=== PATIENT | female | born 1985 | race Caucasian/White ===

== ENCOUNTER 2016-10-24 23:46 | Emergency (ER) | payer OTHER ==
[~2016-10-24] VITALS: Ht 154.9 cm; Wt 86.2 kg
[2016-10-25 02:09] VITALS: BP 157/83
[2016-10-25] MEDS ORDERED: CETACAINE SPRAY 20GM (FLOOR STOCK) TOP ONE (05:45)
[2016-10-25] MEDS ORDERED: BUPIVACAINE HCL 0.5% 30 ML VIAL SC ONE (05:45)
[2016-10-25] MEDS ORDERED: LIDOCAINE W/EPINEPHRINE 1% 20ML VIAL SC ONE (05:45)
[2016-10-25] MEDS ORDERED: NORCO, ANEXSIA 5/325MG TABLET (HYDROcodone/ACETAMINOPHEN) PO ONE (06:15)
== END 2016-10-25 06:33 | disposition home or self-care (01) ==
LOC: M ED 10-25 00:55
DX: K08.89 Other specified disorders of teeth and supporting structures (principal); Z88.0 Allergy status to penicillin

== ENCOUNTER → 2017-04-29 | Outpatient (CLI) | payer OTHER, SELFPAY ==
--- NOTE | 2017-04-30 05:49 | REP ---
Clinical: Sprain . Technique: AP, lateral, bilateral oblique views left ankle . Findings: No acute fracture or dislocation. Skeletal structures and joint spaces are intact and normal. Ankle mortise appears stable. No subcutaneous emphysema or radiodense foreign body. Impression: Normal age-appropriate left ankle radiograph series. Acute fracture or dislocation. Signed by Srinivas Tinsley MD 04/30/2017 05:41 A
== END ==
LOC: M ADAMS 15:18
PROVIDERS: ATTEND Physician Assistant Medical
DX: S93.402A Sprain of unspecified ligament of left ankle, initial encounter (principal); W19.XXXA Unspecified fall, initial encounter; Y92.9 Unspecified place or not applicable; Y99.9 Unspecified external cause status

== ENCOUNTER 2018-07-09 21:20 | Emergency (ER) | payer MEDICAID, SELFPAY ==
[~2018-07-09] VITALS: Ht 154.9 cm; Wt 91.4 kg
[2018-07-09] MEDS ORDERED: birth control (21:26)
[2018-07-09 22:23] LABS: HEMATOCRIT 42.1 % (36.0-47.0); HEMOGLOBIN 14.4 g/dl (12.0-15.5); MEAN CORPUSCULAR HEMOGLOBIN 28.9 pg (27.0-33.0); MEAN CORPUSCULAR HGB CONC 34.2 g/dl (32.0-36.5); MEAN CORPUSCULAR VOLUME 84.4 fl (80.0-96.0); PLATELET COUNT, AUTOMATED 352 10^3/uL (150-450); RED BLOOD COUNT 4.99 10^6/uL (4.00-5.40)
[2018-07-09 22:47] LABS: BLOOD UREA NITROGEN 11 MG/DL (7-18); CALCIUM LEVEL 9.3 MG/DL (8.5-10.1); CARBON DIOXIDE LEVEL 27 MEQ/L (21-32); CHLORIDE LEVEL 108 MEQ/L (98-107); CREATININE FOR GFR 0.65 MG/DL (0.55-1.30); GLOMERULAR FILTRATION RATE > 60.0 (>60); GLUCOSE, FASTING 89 MG/DL (70-100); POTASSIUM SERUM 3.9 MEQ/L (3.5-5.1); SODIUM LEVEL 142 MEQ/L (136-145)
[2018-07-09] MEDS ORDERED: ISOVUE-370 76% 100ML VIAL (Q9967) As Ordered ONE (22:54)
[2018-07-09] MEDS ORDERED: CHLO1.4S2 PO (23:19)
--- NOTE | 2018-07-09 23:28 | REPVR ---
EXAM: CT Neck With Contrast EXAM DATE/TIME: 07/09/2018 9:51 PM CLINICAL HISTORY: 32 years old, female; Signs and symptoms; Abscess, tonsil; Patient HX: Left; Additional info: Tonsillar abscess left TECHNIQUE: Axial computed tomography images of the neck with intravenous contrast. All CT scans at this facility use at least one of these dose optimization techniques: automated exposure control; mA and/or kV adjustment per patient size (includes targeted exams where dose is matched to clinical indication); or iterative reconstruction. Coronal and sagittal reformatted images were created and reviewed. CONTRAST: 75 ml of iso administered intravenously. COMPARISON: No relevant prior studies available. FINDINGS: Sinuses: Clear paranasal sinuses. There is a small amount of secretions in the sphenoid sinus. Nasopharynx: Normal appearing nasopharynx. Oropharynx: There is enlargement of the left tonsil but no clearly defined abscess. Hypopharynx: Normal appearing hypopharynx. Larynx: Normal appearing focal cords. Submandibular/Parotid glands: Normal -appearing parotid glands. Normal appearing submandibular glands. Thyroid: Normal appearing thyroid. Lymph nodes: Very small submandibular lymph nodes. There is a 1.5 CM by 3 CM lymph node right carotid bifurcation. There is a 1.5 CM by 2 CM oval lymph node left posterior triangle region. Lung apices: Clear apical portions of the lung. Vasculature: No acute findings. Dental: There are severe dental caries in 2 of the mandibular teeth with loss of the crown. Mastoid air cells: Clear mastoid air cells. Bones/joints: No evidence of fracture. There is no evidence of destructive change of bone. Soft tissues: Normal. No significant soft tissue swelling. IMPRESSION: 1. Enlarged lymph node right carotid bifurcation and left posterior triangle region. 2. Enlargement of the left tonsil but no defined abscess. Electronically signed by: Arsenio Shell On 07/09/2018 23:28:10 PM
[2018-07-09] MEDS ORDERED: CLIN150C14 PO (23:44)
[2018-07-09] MEDS ORDERED: CLINDAMYCIN 150 MG CAP PO ONE (23:45)
[2018-07-09 23:52] VITALS: BP 122/69
== END 2018-07-09 23:59 | disposition home or self-care (01) ==
LOC: M ED 21:20
DX: J02.9 Acute pharyngitis, unspecified (principal); Z88.0 Allergy status to penicillin
CPT/HCPCS: 70491; 80048; 85027; 87880; 99284; Q9967

== ENCOUNTER 2018-11-12 15:44 | Emergency (ER) | payer MEDICAID, OTHER ==
[~2018-11-12] VITALS: Ht 154.9 cm; Wt 97.7 kg
[~2018-11-12 15:44] MED LIST: CHLO1.4S2 PO; CLIN150C14 PO; birth control
[2018-11-12] MEDS ORDERED: OTC PRENATAL (15:49)
[2018-11-12 16:31] LABS: BASO # 0.1 10^3/uL (0.0-0.2); BASO % 0.8 % (0.0-1.0); EOS # 0.5 10^3/uL (0.0-0.50); EOS % 5.4 % (0.0-3.0); HEMOGLOBIN 14.2 g/dl (12.0-15.5); LYMPH % 30.2 % (24.0-44.0); MEAN CORPUSCULAR HEMOGLOBIN 29.6 pg (27.0-33.0); MEAN CORPUSCULAR HGB CONC 34.6 g/dl (32.0-36.5); MEAN CORPUSCULAR VOLUME 85.6 fl (80.0-96.0); MONO # 0.7 10^3/uL (0.0-0.8); MONO % 6.8 % (0.0-5.0); NEUTROPHILS # 5.6 10^3/uL (1.8-7.7); NEUTROPHILS % 56.5 % (36.0-66.0); PLATELET COUNT, AUTOMATED 307 10^3/uL (150-450); RED BLOOD COUNT 4.79 10^6/uL (4.00-5.40); WHITE BLOOD COUNT 9.9 10^3/uL (4.0-10.0)
[2018-11-12 18:03] VITALS: BP 132/81
[2018-11-12] MEDS ORDERED: MACR100C43 PO (18:06)
--- NOTE | 2018-11-12 18:40 | REP ---
REASON: Vaginal bleeding. COMPARISON EXAMINATION: None. Transvesical and transvaginal imaging was obtained. Uterus measures 10.2 x 6.0 x 7.2 cm. The endometrial echo complex is thickened at 1.5 cm which is within normal limits for the patient's age group. There is no intrauterine or extrauterine identifiable . The right ovary measures 3.0 x 1.8 x 2.0 cm and is within normal limits. The left ovary measures 3.5 x 2.7 x 2.3 cm and is within normal limits. There is a decompressing ovarian cyst which measures 2 cm. IMPRESSION:No evidence of an intrauterine or extrauterine . Findings as described above. Electronically Signed by Erwin Guillory DO 11/12/2018 06:59 P
== END 2018-11-12 18:17 | disposition home or self-care (01) ==
LOC: M ED 15:44
DX: O20.0 Threatened abortion (principal); O23.41 Unspecified infection of urinary tract in pregnancy, first trimester; O34.81 Maternal care for other abnormalities of pelvic organs, first trimester; N83.202 Unspecified ovarian cyst, left side; Z88.0 Allergy status to penicillin; Z88.8 Allergy status to other drugs, medicaments and biological substances; Z3A.00 Weeks of gestation of pregnancy not specified

== ENCOUNTER → 2018-11-14 | Outpatient (CLI) | payer OTHER ==
[~2018-11-14] MED LIST changes: +MACR100C43 PO; +OTC PRENATAL
== END ==
LOC: M LAB 11:33
PROVIDERS: ATTEND Nurse Practitioner Family
DX: O20.0 Threatened abortion (principal); Z3A.00 Weeks of gestation of pregnancy not specified

== ENCOUNTER → 2018-11-17 | Outpatient (REF) | payer OTHER ==
[2018-11-17 18:33] LABS: PROGESTERONE 7.66 NG/ML
== END ==
LOC: M LAB REF 16:36
PROVIDERS: ATTEND Obstetrics & Gynecology
DX: O36.80X0 Pregnancy with inconclusive fetal viability, not applicable or unspecified (principal); Z3A.00 Weeks of gestation of pregnancy not specified

== ENCOUNTER 2018-11-19 11:06 | Emergency (ER) | payer OTHER ==
[~2018-11-19] VITALS: Ht 154.9 cm; Wt 100.5 kg
[2018-11-19 12:51] LABS: BASO # 0.1 10^3/uL (0.0-0.2); BASO % 0.8 % (0.0-1.0); EOS # 0.4 10^3/uL (0.0-0.50); EOS % 5.5 % (0.0-3.0); HEMATOCRIT 42.4 % (36.0-47.0); HEMOGLOBIN 14.5 g/dl (12.0-15.5); LYMPH # 2.2 10^3/uL (1.5-4.5); LYMPH % 29.5 % (24.0-44.0); MEAN CORPUSCULAR HEMOGLOBIN 30.3 pg (27.0-33.0); MEAN CORPUSCULAR HGB CONC 34.2 g/dl (32.0-36.5); MEAN CORPUSCULAR VOLUME 88.7 fl (80.0-96.0); MONO # 0.6 10^3/uL (0.0-0.8); MONO % 8.5 % (0.0-5.0); NEUTROPHILS # 4.1 10^3/uL (1.8-7.7); NEUTROPHILS % 55.2 % (36.0-66.0); PLATELET COUNT, AUTOMATED 286 10^3/uL (150-450); RED BLOOD COUNT 4.78 10^6/uL (4.00-5.40); WHITE BLOOD COUNT 7.4 10^3/uL (4.0-10.0)
--- NOTE | 2018-11-19 13:53 | REP ---
FIRST TRIMESTER OBSTETRIC SONOGRAPHY: HISTORY: Pelvic pain. FINDINGS: Transabdominal and endovaginal scanning are performed. Uterine dimensions are 10.3 x 5.7 x 6.6 cm. No intrauterine gestation is seen. There is no evidence of free cul-de-sac fluid. There are two small hypoechoic cyst in the left ovary measuring 2.1 and 1.2 cm in greatest diameter respectively. Left ovarian dimensions are 3.3 x 2.3 x 2.9 cm. Right ovary is normal measuring 2.9 x 1.7 x 2.0 cm. Resistive indices are 0.49 on the right and 0.57 on the left by Doppler. IMPRESSION: No intrauterine gestation seen. Nonspecific sonographic findings. Early IUP versus ectopic versus miscarriage. Consider followup. There is no evidence of free fluid. Two small cysts are seen in the left ovary. Electronically Signed by Emery Gurrola MD 11/19/2018 03:11 P
[2018-11-19] MEDS ORDERED: METHOTREXATE 50MG/2ML VIAL (J9260 PER 50MG) IM STA (14:42)
[2018-11-19 15:04] LABS: ALBUMIN 3.7 GM/DL (3.2-5.2); BILIRUBIN,DIRECT 0.2 MG/DL (0.0-0.2); BILIRUBIN,TOTAL 0.6 MG/DL (0.2-1.0); TOTAL PROTEIN 7.9 GM/DL (6.4-8.2)
[2018-11-19 16:32] VITALS: BP 114/55
== END 2018-11-19 16:48 | disposition home or self-care (01) ==
LOC: M ED 11:06
DX: O00.90 Unspecified ectopic pregnancy without intrauterine pregnancy (principal); Z88.0 Allergy status to penicillin; Z88.8 Allergy status to other drugs, medicaments and biological substances
CPT/HCPCS: 36415; 76801; 76817; 80076; 84702; 85025; 93976; 96372; 99283; J9260

== ENCOUNTER 2018-11-24 09:34 | Day surgery (SDC) | payer OTHER ==
[~2018-11-24] VITALS: Ht 154.9 cm; Wt 90.9 kg
[2018-11-24] MEDS ORDERED: NS 1,000 ML IV ONE (09:45)
[2018-11-24] MEDS ORDERED: MORPHINE 2 MG/ML 1ML SYRINGE (J2270) IV PRN (10:15)
[2018-11-24] MEDS ORDERED: ONDANSETRON 4MG/2ML VIAL (J2405) IV ONE (10:15)
[2018-11-24 10:20] LABS: BASO # 0.1 10^3/uL (0.0-0.2); BASO % 0.5 % (0.0-1.0); EOS # 0.4 10^3/uL (0.0-0.50); EOS % 3.3 % (0.0-3.0); HEMATOCRIT 38.1 % (36.0-47.0); HEMOGLOBIN 13.2 g/dl (12.0-15.5); LYMPH # 2.7 10^3/uL (1.5-4.5); MEAN CORPUSCULAR HEMOGLOBIN 30.2 pg (27.0-33.0); MEAN CORPUSCULAR HGB CONC 34.6 g/dl (32.0-36.5); MEAN CORPUSCULAR VOLUME 87.2 fl (80.0-96.0); MONO # 0.8 10^3/uL (0.0-0.8); MONO % 6.3 % (0.0-5.0); NEUTROPHILS # 8.8 10^3/uL (1.8-7.7); NEUTROPHILS % 68.4 % (36.0-66.0); PLATELET COUNT, AUTOMATED 294 10^3/uL (150-450); RED BLOOD COUNT 4.37 10^6/uL (4.00-5.40); WHITE BLOOD COUNT 12.8 10^3/uL (4.0-10.0)
--- NOTE | 2018-11-24 11:13 | REP ---
Emergency first trimester obstetric sonography: History: Known ectopic . Status post methotrexate. Question rupture. Findings: Transabdominal and transvaginal scanning are performed. Uterine dimensions are 10.7 x 6.4 x 6.9 cm. The endometrium measures 2.2 cm in thickness. Right ovary measures 2.8 x 1.8 x 2.0 cm. The right ovary has a normal appearance. The left ovary is difficult to differentiate from surrounding tissue. There is complex free fluid and mass effect in the left adnexa with overall dimensions 6.7 x 3.4 x 4.3 cm. This is most compatible with left ovary surrounded by thrombus and blood suggesting ruptured ectopic . There is only a small amount of free fluid in the cul-de-sac elsewhere. Electronically Signed by Emery Gurrola MD 11/24/2018 11:05 A
[2018-11-24] MEDS ORDERED: NS 1,000 ML IV SCH (12:15)
[2018-11-24] MEDS ORDERED: ROCURONIUM BROMIDE 50 MG/5 ML VIAL As Ordered ONE (12:26)
[2018-11-24] MEDS ORDERED: PROPOFOL 200 MG/20 ML VIAL As Ordered ONE (12:26)
[2018-11-24] MEDS ORDERED: SUCCINYLCHOLINE 100 MG/5 ML SYRINGE (J0330) As Ordered ONE (12:26)
[2018-11-24] MEDS ORDERED: LIDOCAINE 2% INJ 100 MG/5 ML SDV (FOR ANES.) As Ordered ONE (12:26)
[2018-11-24] MEDS ORDERED: MIDAZOLAM INJ 2 MG/2 ML VIAL (J2250) As Ordered ONE (12:27)
[2018-11-24] MEDS ORDERED: fentaNYL 100 MCG/2 ML INJECTION (J3010) As Ordered ONE (12:27)
[2018-11-24] MEDS ORDERED: BUPIVACAINE/EPIN 0.25% 30 ML VIAL As Ordered ONE (12:30)
[2018-11-24] MEDS ORDERED: METHYLENE BLUE 0.5% (5MG/ML) 10 ML AMP (PROVAYBLUE)(Q9968 PER 1MG) As Ordered ONE (12:31)
[2018-11-24] MEDS ORDERED: HYDROmorphone HCL 2 MG/ML 1ML VIAL (J1170) As Ordered ONE (13:25)
[2018-11-24] MEDS ORDERED: ACETAMINOPHEN 1000MG 100ML IV BTL (OFIRMEV) (J0131 PER 10MG) As Ordered ONE (13:25)
[2018-11-24] MEDS ORDERED: dexameTHASONE 4 MG/ML 1ML VIAL (J1100) As Ordered ONE (13:41)
[2018-11-24] MEDS ORDERED: ONDANSETRON 4MG/2ML VIAL (J2405) As Ordered ONE (13:41)
[2018-11-24] MEDS ORDERED: GLYCOPYRROLATE INJ 0.2 MG/ML 2 ML VIAL As Ordered ONE (13:45)
[2018-11-24] MEDS ORDERED: NEOSTIGMINE 10 MG/10 ML VIAL (J2710) As Ordered ONE (13:45)
[2018-11-24] MEDS ORDERED: SUGAMMADEX SODIUM 500 MG/5 ML VIAL (BRIDION) As Ordered ONE (14:05)
[2018-11-24] MEDS ORDERED: PERCOCET 5MG/325MG TAB As Ordered ONE (14:27)
[2018-11-24] MEDS ORDERED: ONDANSETRON 4MG/2ML VIAL (J2405) IV PRN (14:30)
[2018-11-24] MEDS ORDERED: PERCOCET 5MG/325MG TAB PO PRN (14:30)
[2018-11-24] MEDS ORDERED: MEPERIDINE INJ 25 MG/ML VIAL (J2175) IV PRN (14:30)
[2018-11-24] MEDS ORDERED: METOCLOPRAMIDE INJ 10MG/2ML VIAL (J2765) IV PRN (14:30)
[2018-11-24] MEDS ORDERED: fentaNYL 100 MCG/2 ML INJECTION (J3010) IV PRN (14:30)
[2018-11-24] MEDS ORDERED: LR 1,000 ML IV SCH (14:30)
[2018-11-24 17:35] VITALS: BP 118/66
--- NOTE | 2018-11-25 11:44 | RO ---
DATE OF PROCEDURE: 11/24/2018 Simran is a 33-year-old female who was found to have an ectopic earlier on, she was placed on methotrexate, however, she presented to the emergency room 4 days after with excruciating pain. Repeat ultrasound was found to be consistent with a ruptured left ectopic . At this point a decision was made to take the patient to the operating room for an operative laparoscopy, possible left salpingectomy and evacuation of the ectopic . PREOPERATIVE DIAGNOSES: 1. Left ruptured ectopic . 2. Acute abdominal pain. POSTOPERATIVE DIAGNOSES: 1. Left ruptured ectopic . 2. Acute abdominal pain. 3. Dense pelvic and omental adhesion PROCEDURES: 1. Operative laparoscopy. 2. Left salpingectomy. 3. Evacuation of hemoperitoneum. ANESTHESIA: General. SURGEON: Dr. Vasquez COMPLICATIONS: None. ESTIMATED BLOOD LOSS: Operative blood loss 20 mL. Intra-abdominal blood loss from the ruptured ectopic approximately 600-700 mL. SENT TO THE LAB: Left fallopian tube with ectopic . FINDINGS: Normal left ovary, a ruptured left at that topic , hemoperitoneum, and a normal right ovary and tube with dense pelvic adhesions from her prior surgery. Also lower segment of the uterus was adherent to the bladder as well as omental adhesions to the anterior abdominal wall and sidewall. After obtaining informed consent the patient was taken to the operating room where general anesthetic was found to be adequate. She was then draped and prepped in the usual sterile fashion in the dorsal lithotomy position. At this point a Harmon catheter was placed in the bladder for drainage. We then placed a uterine manipulator. My attention was then turned to the abdomen where 10 mL infraumbilical incision was made using the Veress needle and the abdomen was then was insufflated with CO2 gas. Upon entering the abdominal cavity is a dense omental and pelvic adhesions were noted with a ruptured left ectopic . At this point, a 11 mm port was placed on the left side and a 8 mm port placed on the right side. The patient was placed in steep Trendelenburg. The fallopian tube was identified with the ectopic . The tube was severely damaged, at this point a decision was made to remove the entire tube using the RENETTA Harmonic scalpel. The entire left tube was removed. The pelvis was copiously irrigated with normal saline. All clot and blood were removed and washed away. The pelvis inspected. Normal right tube and ovary noted. Normal left ovary, however, the lower uterine segment was also adherent to the bladder. Given that the ectopic was secured and there was no further bleeding we then removed all the trocars and the laparoscopic ports were closed using 0 Vicryl on the fascia and #3-0 Vicryl on the skin. Dermabond placed. 0.25 percent Marcaine with epinephrine was given for postoperative pain. The patient tolerated procedure well. She was then transferred to recovery room in stable condition. GENARO
== END 2018-11-24 17:37 | disposition home or self-care (01) ==
LOC: M ED 09:34 → M SDC 12:26
PROVIDERS: ATTEND Obstetrics & Gynecology
DX: O00.102 Left tubal pregnancy without intrauterine pregnancy (principal); N73.6 Female pelvic peritoneal adhesions (postinfective); K66.1 Hemoperitoneum; Z88.0 Allergy status to penicillin
CPT/HCPCS: 59151; 76801; 76817; 84702; 85025; 86850; 86900; 86901; 88305; 96374; 96375; 99284; J0131; J0330; J1100; J1170; J2250; J2270; J2405; J2710; J3010

== ENCOUNTER 2019-03-16 22:11 | Emergency (ER) | payer OTHER ==
[~2019-03-16] VITALS: Ht 154.9 cm; Wt 94.3 kg
[2019-03-16 22:12] VITALS: BP 139/86
[2019-03-16 23:03] LABS: HEMATOCRIT 38.6 % (36.0-47.0); HEMOGLOBIN 13.3 g/dl (12.0-15.5); MEAN CORPUSCULAR HEMOGLOBIN 30.2 pg (27.0-33.0); MEAN CORPUSCULAR HGB CONC 34.5 g/dl (32.0-36.5); MEAN CORPUSCULAR VOLUME 87.5 fl (80.0-96.0); PLATELET COUNT, AUTOMATED 241 10^3/uL (150-450); RED BLOOD COUNT 4.41 10^6/uL (4.00-5.40); WHITE BLOOD COUNT 8.3 10^3/uL (4.0-10.0)
[2019-03-16 23:18] LABS: HCG, SERUM QUALITATIVE NEGATIVE (NEGATIVE)
[2019-03-16 23:22] LABS: BLOOD UREA NITROGEN 13 MG/DL (7-18); CALCIUM LEVEL 8.7 MG/DL (8.5-10.1); CARBON DIOXIDE LEVEL 26 MEQ/L (21-32); CHLORIDE LEVEL 110 MEQ/L (98-107); CREATININE FOR GFR 0.63 MG/DL (0.55-1.30); GLOMERULAR FILTRATION RATE > 60.0 (>60); GLUCOSE, FASTING 86 MG/DL (70-100); POTASSIUM SERUM 3.9 MEQ/L (3.5-5.1); SODIUM LEVEL 141 MEQ/L (136-145)
[2019-03-17] MEDS ORDERED: NS 1,000 ML IV ONE (00:30)
[2019-03-17] MEDS ORDERED: ACETAMINOPHEN 500 MG TAB PO ONE (00:30)
[2019-03-17] MEDS ORDERED: ACETAMINOPHEN 325 MG TAB As Ordered ONE (00:48)
[2019-03-17 01:05] LABS: ALBUMIN 3.8 GM/DL (3.2-5.2); ALT/SGPT 19 U/L (12-78); BILIRUBIN,DIRECT < 0.1 MG/DL (0.0-0.2); BILIRUBIN,TOTAL 0.3 MG/DL (0.2-1.0); LIPASE 148 U/L (73-393); TOTAL PROTEIN 6.8 GM/DL (6.4-8.2)
--- NOTE | 2019-03-17 01:51 | REPVR ---
EXAM: US Pelvis Complete, Transabdominal EXAM DATE/TIME: 03/17/2019 1:07 AM CLINICAL HISTORY: 33 years old, female; Pelvic pain; Prior surgery; Surgery date: 1-6 months; Surgery type: Left ruptured ectopic with surgical removal of left fallopian tube in November 2018; Additional info: Left sided pelvic pain, HX of cysts TECHNIQUE: Imaging protocol: Real-time transabdominal pelvic ultrasound with image documentation. Complete exam. COMPARISON: No relevant prior studies available. FINDINGS: Uterus/cervix: The uterus measures 10.4 cm in its cephalocaudad dimension and 5.2 x 6.4 cm in its AP and lateral dimensions transabdominal. The uterus measures 9.6 cm in its cephalocaudad dimension and 5.3 x 6.5 cm in its AP and lateral dimensions transvaginal. The endometrium measures 7 mm transabdominal and transvaginal. Right adnexa: The right ovary measures 3.0 x 2.0 x 3.0 cm and demonstrates arterial and venous blood flow and small follicles. Left adnexa: The left ovary measures 3.2 x 3.4 x 2.3 cm and demonstrates arterial and venous blood flow and small follicles. Free fluid: None. Bladder: The urinary bladder measures 4.0 x 4.8 x 9.0 cm. IMPRESSION: Negative pelvic sonogram. Electronically signed by: Cesar Dunne On 03/17/2019 01:50:22 AM
== END 2019-03-17 02:38 | disposition home or self-care (01) ==
LOC: M ED 22:11
DX: N92.0 Excessive and frequent menstruation with regular cycle (principal); N94.6 Dysmenorrhea, unspecified; R10.2 Pelvic and perineal pain; Z87.42 Personal history of other diseases of the female genital tract; Z88.0 Allergy status to penicillin; Z88.8 Allergy status to other drugs, medicaments and biological substances

== ENCOUNTER 2019-12-04 09:07 | Emergency (ER) | payer OTHER ==
[~2019-12-04] VITALS: Ht 154.9 cm; Wt 99.2 kg
[2019-12-04] MEDS ORDERED: DEBL1TAB PO (09:13)
[2019-12-04 09:21] VITALS: BP 132/86
[2019-12-04 09:35] LABS: BASO # 0.1 10^3/uL (0.0-0.2); BASO % 0.8 % (0.0-1.0); EOS # 0.4 10^3/uL (0.0-0.5); EOS % 5.2 % (0.0-3.0); HEMOGLOBIN 13.9 g/dl (12.0-15.5); LYMPH # 2.2 10^3/uL (1.5-5.0); LYMPH % 29.4 % (24.0-44.0); MEAN CORPUSCULAR HEMOGLOBIN 29.4 pg (27.0-33.0); MEAN CORPUSCULAR HGB CONC 34.8 g/dl (32.0-36.5); MEAN CORPUSCULAR VOLUME 84.7 fl (80.0-96.0); MONO # 0.6 10^3/uL (0.0-0.8); MONO % 8.3 % (0.0-5.0); NEUTROPHILS # 4.1 10^3/uL (1.5-8.5); NEUTROPHILS % 56.2 % (36.0-66.0); PLATELET COUNT, AUTOMATED 288 10^3/uL (150-450); RED BLOOD COUNT 4.72 10^6/uL (4.00-5.40); WHITE BLOOD COUNT 7.4 10^3/uL (4.0-10.0)
[2019-12-04 10:01] LABS: ALBUMIN 3.9 GM/DL (3.2-5.2); BILIRUBIN,DIRECT 0.2 MG/DL (0.0-0.2); BILIRUBIN,TOTAL 0.6 MG/DL (0.2-1.0)
== END 2019-12-04 11:12 | disposition home or self-care (01) ==
LOC: M ED 09:07
DX: R10.12 Left upper quadrant pain (principal); R11.0 Nausea; Z87.19 Personal history of other diseases of the digestive system; Z87.42 Personal history of other diseases of the female genital tract; Z79.899 Other long term (current) drug therapy; Z88.0 Allergy status to penicillin; Z88.8 Allergy status to other drugs, medicaments and biological substances

== ENCOUNTER → 2020-06-12 | Outpatient (REF) | payer OTHER ==
[~2020-06-12] MED LIST changes: +DEBL1TAB PO
[2020-06-12 12:36] LABS: BASO # 0.1 10^3/uL (0.0-0.2); BASO % 0.6 % (0.0-1.0); EOS # 0.6 10^3/uL (0.0-0.5); EOS % 7.2 % (0.0-3.0); HEMATOCRIT 41.6 % (36.0-47.0); HEMOGLOBIN 13.8 g/dl (12.0-15.5); LYMPH # 2.4 10^3/uL (1.5-5.0); LYMPH % 31.3 % (24.0-44.0); MEAN CORPUSCULAR HEMOGLOBIN 28.8 pg (27.0-33.0); MEAN CORPUSCULAR HGB CONC 33.2 g/dl (32.0-36.5); MEAN CORPUSCULAR VOLUME 86.8 fl (80.0-96.0); MONO # 0.6 10^3/uL (0.0-0.8); MONO % 7.7 % (0.0-5.0); NEUTROPHILS # 4.1 10^3/uL (1.5-8.5); NEUTROPHILS % 52.9 % (36.0-66.0); PLATELET COUNT, AUTOMATED 302 10^3/uL (150-450); RED BLOOD COUNT 4.79 10^6/uL (4.00-5.40); WHITE BLOOD COUNT 7.8 10^3/uL (4.0-10.0)
[2020-06-12 13:09] LABS: ALBUMIN 3.9 GM/DL (3.2-5.2); ALT/SGPT 25 U/L (12-78); BILIRUBIN,TOTAL 0.5 MG/DL (0.2-1.0); BLOOD UREA NITROGEN 11 MG/DL (7-18); CALCIUM LEVEL 9.3 MG/DL (8.5-10.1); CARBON DIOXIDE LEVEL 28 MEQ/L (21-32); CHLORIDE LEVEL 108 MEQ/L (98-107); CHOLESTEROL LEVEL 163 MG/DL (<200); CHOLESTEROL RISK RATIO 3.395 (<5); FREE T4 1.19 NG/DL (0.76-1.46); GLOMERULAR FILTRATION RATE > 60.0 (>60); GLUCOSE, FASTING 90 MG/DL (70-100); HDL CHOLESTEROL 48 MG/DL (>40); LDL CHOLESTEROL 100 MG/DL (<100); NON-HDL-C 115 MG/DL; POTASSIUM SERUM 4.5 MEQ/L (3.5-5.1); SODIUM LEVEL 140 MEQ/L (136-145); TOTAL PROTEIN 7.1 GM/DL (6.4-8.2); TRIGLYCERIDES LEVEL 76 MG/DL (<150)
[2020-06-12 13:10] LABS: TOTAL 25(OH) VITAMIN D 22.5 NG/ML (30.0-100.0)
[2020-06-12 13:26] LABS: HEMOGLOBIN A1c 5.1 %
== END ==
LOC: M LAB REF 11:55
PROVIDERS: ATTEND Nurse Practitioner Family
DX: Z13.228 Encounter for screening for other metabolic disorders (principal); F41.9 Anxiety disorder, unspecified

== ENCOUNTER 2020-07-19 05:36 | Emergency (ER) | payer OTHER ==
[~2020-07-19] VITALS: Ht 154.9 cm; Wt 104.5 kg
[2020-07-19] MEDS ORDERED: PROZ10CA7 PO (05:50)
[2020-07-19] MEDS ORDERED: BUSP5TA PO (05:50)
[2020-07-19] MEDS ORDERED: ONDANSETRON 4 MG ORAL DISINTEGRATING TAB PO ONE (07:15)
[2020-07-19 07:41] VITALS: O2SAT 96
--- NOTE | 2020-07-19 07:46 | REP ---
INDICATION: cough COMPARISON: 02/10/2014 TECHNIQUE: Portable AP view of the chest FINDINGS: The mediastinum and cardiac silhouette are stable and within normal limits for portable technique. The lung hilliard are clear without acute consolidation, effusion, or pneumothorax. Skeletal structures are intact. IMPRESSION: No acute cardiopulmonary process appreciated. <Electronically signed by Srinivas Tinsley > 07/19/20 [id number]
[2020-07-19] MEDS ORDERED: TESS100C PO (08:50)
[2020-07-19] MEDS ORDERED: ONDA4TAB6 PO (08:50)
[2020-07-19 09:26] VITALS: BP 143/76
== END 2020-07-19 09:32 | disposition home or self-care (01) ==
LOC: M ED 05:36
DX: J06.9 Acute upper respiratory infection, unspecified (principal); B34.9 Viral infection, unspecified; Z20.828 Contact with and (suspected) exposure to other viral communicable diseases; F33.9 Major depressive disorder, recurrent, unspecified; F41.9 Anxiety disorder, unspecified; Z79.899 Other long term (current) drug therapy; Z88.0 Allergy status to penicillin; Z88.8 Allergy status to other drugs, medicaments and biological substances
CPT/HCPCS: 71045; 99284; Q0162; U0003

== ENCOUNTER → 2021-07-16 | Outpatient (CLI) | payer OTHER ==
[~2021-07-16] MED LIST changes: +BUSP5TA PO; -CLIN150C14 PO; +CLIN150C17 PO; +ONDA4TAB6 PO; +PROZ10CA7 PO; +TESS100C PO
== END ==
LOC: M PLALAB 11:26
PROVIDERS: ATTEND Advanced Practice Midwife
DX: O26.899 Other specified pregnancy related conditions, unspecified trimester (principal)

== ENCOUNTER → 2021-07-16 | Outpatient (CLI) | payer OTHER ==
--- NOTE | 2021-07-16 13:39 | REP ---
INDICATION: RIGHT LOWER QUADRANT PAIN. COMPARISON: 03/17/2019. TECHNIQUE: Real-time sonographic evaluation of pelvis performed utilizing transabdominal and endovaginal technique. FINDINGS: The uterus measures 11.0 x 5.5 x 56.5 cm. Endometrial thickness is 23 mm. No endometrial fluid collection or gestational sac is visualized. The right ovary measures 3.3 x 3.1 x 2.5 cm and left ovary 2.8 x 1.7 x 2.5 cm. Blood flow is seen in each ovary with duplex Doppler evaluation, with no torsion. A complex cystic structure in the right ovary measures 2.3 cm in diameter. There is no adnexal mass or free fluid. IMPRESSION: Endometrial thickness 23 mm. No endometrial fluid collection or gestational sac seen. Cystic structure right ovary 2.3 cm may represent a corpus luteum. Differential diagnosis would include very early intrauterine , missed AB or ectopic . Recommend correlation with serial quantitative beta HCG values. <Electronically signed by Gigi Lundy > 07/16/21 [id number]
== END ==
LOC: M WHC 11:26
PROVIDERS: ATTEND Advanced Practice Midwife
DX: O26.899 Other specified pregnancy related conditions, unspecified trimester (principal); R10.31 Right lower quadrant pain; Z87.59 Personal history of other complications of pregnancy, childbirth and the puerperium

== ENCOUNTER 2021-07-18 11:14 | Emergency (ER) | payer OTHER ==
[~2021-07-18] VITALS: Ht 154.9 cm; Wt 96.4 kg
[2021-07-18] MEDS ORDERED: SERT50TA29 (12:06)
[2021-07-18] MEDS ORDERED: ACET32TAB PO (12:06)
[2021-07-18 14:27] LABS: BASO % 0.2 % (0.0-1.0); EOS % 0.2 % (0.0-3.0); HEMATOCRIT 43.4 % (36.0-47.0); HEMOGLOBIN 15.1 g/dl (12.0-15.5); LYMPH # 2.2 10^3/uL (1.5-5.0); LYMPH % 25.5 % (24.0-44.0); MEAN CORPUSCULAR HEMOGLOBIN 29.2 pg (27.0-33.0); MEAN CORPUSCULAR HGB CONC 34.8 g/dl (32.0-36.5); MEAN CORPUSCULAR VOLUME 83.8 fl (80.0-96.0); MONO # 0.5 10^3/uL (0.0-0.8); MONO % 6.3 % (2.0-8.0); NEUTROPHILS # 5.7 10^3/uL (1.5-8.5); NEUTROPHILS % 67.4 % (36.0-66.0); PLATELET COUNT, AUTOMATED 328 10^3/uL (150-450); RED BLOOD COUNT 5.18 10^6/uL (4.00-5.40); WHITE BLOOD COUNT 8.4 10^3/uL (4.0-10.0)
[2021-07-18 14:52] LABS: BLOOD UREA NITROGEN 9 MG/DL (7-18); CALCIUM LEVEL 9.9 MG/DL (8.5-10.1); CARBON DIOXIDE LEVEL 22 MEQ/L (21-32); CHLORIDE LEVEL 112 MEQ/L (98-107); CREATININE FOR GFR 0.65 MG/DL (0.55-1.30); GLOMERULAR FILTRATION RATE > 60.0 (>60); GLUCOSE, FASTING 94 MG/DL (70-100); POTASSIUM SERUM 3.8 MEQ/L (3.5-5.1); SODIUM LEVEL 143 MEQ/L (136-145)
[2021-07-18] MEDS ORDERED: NS 1,000 ML IV ONE (17:25)
[2021-07-18] MEDS ORDERED: ACETAMINOPHEN 500 MG TAB PO ONE (17:25)
[2021-07-18] MEDS ORDERED: ONDANSETRON 4MG/2ML VIAL IV ONE (17:25)
[2021-07-18] MEDS ORDERED: ONDA4TAB6 PO (20:01)
[2021-07-18 20:48] VITALS: BP 123/72
== END 2021-07-18 20:53 | disposition home or self-care (01) ==
LOC: M ED 11:14
DX: U07.1 COVID-19 (principal); R94.31 Abnormal electrocardiogram [ECG] [EKG]; Z88.0 Allergy status to penicillin; Z88.1 Allergy status to other antibiotic agents; Z90.49 Acquired absence of other specified parts of digestive tract
CPT/HCPCS: 80048; 85025; 93005; 96361; 96374; 99284; J2405

== ENCOUNTER 2021-07-20 12:16 | Emergency (ER) | payer OTHER ==
[~2021-07-20] VITALS: Ht 154.9 cm; Wt 98.9 kg
[~2021-07-20 12:16] MED LIST changes: +ACET32TAB PO; +SERT50TA29
[2021-07-20 18:55] LABS: BASO % 0.2 % (0.0-1.0); EOS # 0.1 10^3/uL (0.0-0.5); EOS % 0.9 % (0.0-3.0); HEMATOCRIT 37.7 % (36.0-47.0); HEMOGLOBIN 13.3 g/dl (12.0-15.5); LYMPH # 2.3 10^3/uL (1.5-5.0); LYMPH % 26.3 % (24.0-44.0); MEAN CORPUSCULAR HEMOGLOBIN 29.4 pg (27.0-33.0); MEAN CORPUSCULAR HGB CONC 35.3 g/dl (32.0-36.5); MEAN CORPUSCULAR VOLUME 83.2 fl (80.0-96.0); MONO # 0.8 10^3/uL (0.0-0.8); MONO % 8.8 % (2.0-8.0); NEUTROPHILS # 5.5 10^3/uL (1.5-8.5); NEUTROPHILS % 63.5 % (36.0-66.0); PLATELET COUNT, AUTOMATED 280 10^3/uL (150-450); RED BLOOD COUNT 4.53 10^6/uL (4.00-5.40); WHITE BLOOD COUNT 8.7 10^3/uL (4.0-10.0)
[2021-07-20 20:29] VITALS: BP 122/71
== END 2021-07-20 20:32 | disposition home or self-care (01) ==
LOC: M ED 12:16
DX: O03.9 Complete or unspecified spontaneous abortion without complication (principal); Z3A.01 Less than 8 weeks gestation of pregnancy; Z88.1 Allergy status to other antibiotic agents

== ENCOUNTER → 2021-07-25 | Outpatient (CLI) | payer OTHER | LOC: M RAD 14:45 | PROVIDERS: ATTEND Pediatrics | DX: Z09 Encounter for follow-up examination after completed treatment for conditions other than malignant neoplasm (principal); Z86.16 Personal history of COVID-19 ==

== ENCOUNTER → 2021-10-05 | Outpatient (CLI) | payer OTHER ==
[~2021-10-05] MED LIST changes: -CHLO1.4S2 PO; +CHLO1.4S7 PO
== END ==
LOC: M WHC 14:28
PROVIDERS: ATTEND Nurse Practitioner Family
DX: N64.4 Mastodynia (principal)
CPT/HCPCS: 76642; 77065; G0279

== ENCOUNTER → 2022-01-29 | Outpatient (CLI) | payer OTHER | LOC: M WHC 15:03 | PROVIDERS: ATTEND Obstetrics & Gynecology | DX: N97.9 Female infertility, unspecified (principal) ==

== ENCOUNTER → 2022-02-19 | Outpatient (CLI) | payer OTHER ==
[2022-02-19 21:45] LABS: FREE T4 1.09 NG/DL (0.76-1.46); THYROID STIMULATING HORMONE 4.29 uIU/ML (0.358-3.740)
[2022-02-19 22:39] LABS: ESTRADIOL 46.8 PG/ML; FOLLICLE STIMULATING HORMONE 6.2 mIU/mL; LUTEINIZING HORMONE 1.6 mIU/mL; PROLACTIN 11.2 NG/ML
== END ==
LOC: M PLALAB 15:33
PROVIDERS: ATTEND Obstetrics & Gynecology
DX: N97.9 Female infertility, unspecified (principal)

== ENCOUNTER → 2022-04-02 | Outpatient (CLI) | payer OTHER ==
[2022-04-02 18:58] LABS: FREE T4 1.03 NG/DL (0.76-1.46); THYROID STIMULATING HORMONE 2.36 uIU/ML (0.358-3.740)
== END ==
LOC: M PLALAB 15:25
PROVIDERS: ATTEND Obstetrics & Gynecology
DX: E03.9 Hypothyroidism, unspecified (principal)

== ENCOUNTER → 2022-04-12 | Outpatient (CLI) | payer OTHER | LOC: M LAB 09:55 | PROVIDERS: ATTEND Obstetrics & Gynecology | DX: Z32.01 Encounter for pregnancy test, result positive (principal) ==

== ENCOUNTER → 2022-04-14 | Outpatient (CLI) | payer OTHER | LOC: M LAB 10:20 | PROVIDERS: ATTEND Obstetrics & Gynecology | DX: Z32.01 Encounter for pregnancy test, result positive (principal) ==

== ENCOUNTER → 2022-04-16 | Outpatient (CLI) | payer OTHER | LOC: M LAB 15:23 | PROVIDERS: ATTEND Obstetrics & Gynecology | DX: Z32.01 Encounter for pregnancy test, result positive (principal) ==

== ENCOUNTER 2022-04-21 14:32 | Emergency (ER) | payer OTHER ==
[~2022-04-21] VITALS: Ht 154.9 cm; Wt 104.8 kg
[2022-04-21 15:59] LABS: BASO # 0.1 10^3/uL (0.0-0.2); BASO % 0.8 % (0.0-1.0); EOS # 0.4 10^3/uL (0.0-0.5); EOS % 4.3 % (0.0-3.0); HEMATOCRIT 38.5 % (36.0-47.0); HEMOGLOBIN 13.1 g/dl (12.0-15.5); LYMPH # 2.4 10^3/uL (1.5-5.0); LYMPH % 25.6 % (24.0-44.0); MEAN CORPUSCULAR HEMOGLOBIN 29.8 pg (27.0-33.0); MEAN CORPUSCULAR VOLUME 87.5 fl (80.0-96.0); MONO # 0.9 10^3/uL (0.0-0.8); MONO % 9.5 % (2.0-8.0); NEUTROPHILS # 5.5 10^3/uL (1.5-8.5); NEUTROPHILS % 59.4 % (36.0-66.0); PLATELET COUNT, AUTOMATED 300 10^3/uL (150-450); WHITE BLOOD COUNT 9.3 10^3/uL (4.0-10.0)
[2022-04-21 16:45] LABS: BLOOD UREA NITROGEN 5 MG/DL (7-18); CALCIUM LEVEL 9.3 MG/DL (8.5-10.1); CARBON DIOXIDE LEVEL 24 MEQ/L (21-32); CHLORIDE LEVEL 110 MEQ/L (98-107); CREATININE FOR GFR 0.66 MG/DL (0.55-1.30); GLOMERULAR FILTRATION RATE > 60.0 (>60); GLUCOSE, FASTING 94 MG/DL (70-100); HCG, SERUM QUANTITATIVE 3257 MIU/ML; SODIUM LEVEL 140 MEQ/L (136-145)
[2022-04-21 18:55] LABS: GC DNA AMPLIFICATION NEGATIVE (NEGATIVE)
[2022-04-21 19:58] VITALS: BP 135/75
== END 2022-04-21 20:10 | disposition home or self-care (01) ==
LOC: M ED 14:32
DX: O26.891 Other specified pregnancy related conditions, first trimester (principal); R10.2 Pelvic and perineal pain; Z87.42 Personal history of other diseases of the female genital tract; Z87.59 Personal history of other complications of pregnancy, childbirth and the puerperium; Z88.1 Allergy status to other antibiotic agents; Z79.899 Other long term (current) drug therapy

== ENCOUNTER → 2022-04-26 | Outpatient (CLI) | payer OTHER | LOC: M PLALAB 08:48 | PROVIDERS: ATTEND Obstetrics & Gynecology | DX: Z34.91 Encounter for supervision of normal pregnancy, unspecified, first trimester (principal) ==

== ENCOUNTER → 2022-05-01 | Outpatient (CLI) | payer OTHER | LOC: M LAB 15:05 | PROVIDERS: ATTEND Obstetrics & Gynecology | DX: O20.9 Hemorrhage in early pregnancy, unspecified (principal); Z3A.00 Weeks of gestation of pregnancy not specified ==

== ENCOUNTER → 2022-05-14 | Outpatient (REF) | payer OTHER | LOC: M SFHCWAGY 17:16 | PROVIDERS: ATTEND Obstetrics & Gynecology | DX: O26.21 Pregnancy care for patient with recurrent pregnancy loss, first trimester (principal) ==

== ENCOUNTER → 2022-05-24 | Outpatient (CLI) | payer OTHER ==
[2022-05-24 17:43] LABS: BASO # 0.1 10^3/uL (0.0-0.2); BASO % 0.5 % (0.0-1.0); EOS # 0.4 10^3/uL (0.0-0.5); EOS % 3.7 % (0.0-3.0); HEMATOCRIT 35.5 % (36.0-47.0); LYMPH # 2.3 10^3/uL (1.5-5.0); LYMPH % 23.1 % (24.0-44.0); MEAN CORPUSCULAR HEMOGLOBIN 29.7 pg (27.0-33.0); MEAN CORPUSCULAR HGB CONC 33.8 g/dl (32.0-36.5); MEAN CORPUSCULAR VOLUME 87.9 fl (80.0-96.0); MONO # 0.6 10^3/uL (0.0-0.8); MONO % 6.4 % (2.0-8.0); NEUTROPHILS # 6.6 10^3/uL (1.5-8.5); NEUTROPHILS % 65.9 % (36.0-66.0); PLATELET COUNT, AUTOMATED 265 10^3/uL (150-450); RED BLOOD COUNT 4.04 10^6/uL (4.00-5.40)
[2022-05-27 10:20] LABS: HEPATITIS C VIRUS ABY INDEX 0.2 INDEX (<0.8); HIV 1&2 SCREEN CENTAUR NEGATIVE (NEGATIVE)
== END ==
LOC: M PLALAB 15:14
PROVIDERS: ATTEND Obstetrics & Gynecology
DX: O26.21 Pregnancy care for patient with recurrent pregnancy loss, first trimester (principal)

== ENCOUNTER → 2022-05-27 | Outpatient (REF) | payer OTHER ==
[2022-05-27 13:20] LABS: CHOLESTEROL RISK RATIO 2.849 (<5); THYROID STIMULATING HORMONE 1.13 uIU/ML (0.358-3.740)
== END ==
LOC: M LAB REF 11:40
PROVIDERS: ATTEND Nurse Practitioner Family
DX: E66.9 Obesity, unspecified (principal)

== ENCOUNTER 2022-06-23 13:33 | Emergency (ER) | payer OTHER ==
[~2022-06-23] VITALS: Ht 154.9 cm; Wt 102.8 kg
[2022-06-23 13:33] VITALS: BP 120/59
[2022-06-23 15:13] LABS: APPEARANCE, URINE MANUAL CLEAR (CLEAR); BILIRUBIN, URINE MANUAL NEGATIVE (NEGATIVE); BLOOD URINE MANUAL POSITIVE (NEGATIVE); COLOR, URINE MANUAL YELLOW (YELLOW); GLUCOSE, URINE (UA) MANUAL NEGATIVE (NEGATIVE); KETONE, URINE MANUAL NEGATIVE (NEGATIVE); LEUKOCYTE ESTERASE, URINE MAN TRACE (NEGATIVE); NITRITE, URINE MANUAL NEGATIVE (NEGATIVE); PROTEIN, URINE MANUAL NEGATIVE (NEGATIVE); SPECIFIC GRAVITY,URINE MANUAL 1.025 (1.002-1.035); UROBILINOGEN, URINE MANUAL NORMAL (NORMAL)
[2022-06-23 15:18] LABS: BASO % 0.4 % (0.0-1.0); EOS # 0.4 10^3/uL (0.0-0.5); EOS % 3.9 % (0.0-3.0); HEMATOCRIT 37.5 % (36.0-47.0); HEMOGLOBIN 12.9 g/dl (12.0-15.5); LYMPH # 2.3 10^3/uL (1.5-5.0); LYMPH % 23.9 % (24.0-44.0); MEAN CORPUSCULAR HEMOGLOBIN 29.8 pg (27.0-33.0); MEAN CORPUSCULAR HGB CONC 34.4 g/dl (32.0-36.5); MEAN CORPUSCULAR VOLUME 86.6 fl (80.0-96.0); MONO # 0.7 10^3/uL (0.0-0.8); MONO % 7.2 % (2.0-8.0); NEUTROPHILS # 6.2 10^3/uL (1.5-8.5); NEUTROPHILS % 64.2 % (36.0-66.0); PLATELET COUNT, AUTOMATED 265 10^3/uL (150-450); RED BLOOD COUNT 4.33 10^6/uL (4.00-5.40); WHITE BLOOD COUNT 9.7 10^3/uL (4.0-10.0)
[2022-06-23 15:20] LABS: BLOOD UREA NITROGEN 7 MG/DL (9-23); CALCIUM LEVEL 8.8 MG/DL (8.5-10.1); CARBON DIOXIDE LEVEL 20 MMOL/L (20-31); CHLORIDE LEVEL 107 MMOL/L (98-107); CREATININE FOR GFR 0.48 MG/DL (0.55-1.30); GLOMERULAR FILTRATION RATE > 60.0 (>60); GLUCOSE, FASTING 86 MG/DL (60-100); POTASSIUM SERUM 4.4 MMOL/L (3.5-5.1); SODIUM LEVEL 139 MMOL/L (136-145)
[2022-06-23 15:33] LABS: BACTERIA, URINE SMALL AMOUNT; MUCUS, URINE LARGE AMOUNT (NEGATIVE); RBC, URINE 40-50 /hpf (0-3); SQUAMOUS EPITHELIAL CELL URINE SMALL AMOUNT /hpf (SMALL AMT); WBC, URINE 0-1 /hpf (0-3)
== END 2022-06-23 17:27 | disposition home or self-care (01) ==
LOC: M ED 13:33
DX: O20.0 Threatened abortion (principal); Z87.42 Personal history of other diseases of the female genital tract; Z88.1 Allergy status to other antibiotic agents; Z3A.13 13 weeks gestation of pregnancy; Z79.899 Other long term (current) drug therapy

== ENCOUNTER → 2022-07-29 | Outpatient (REF) | payer OTHER | LOC: M LAB REF 11:59 | PROVIDERS: ATTEND Nurse Practitioner Family | DX: R05.9 Cough, unspecified (principal) ==

== ENCOUNTER 2022-08-01 16:40 | Emergency (ER) | payer OTHER ==
[~2022-08-01] VITALS: Ht 154.9 cm; Wt 103.5 kg
[2022-08-01 16:41] VITALS: BP 146/77
[2022-08-02] MEDS ORDERED: PREN1TAB11 PO (15:29)
[2022-08-02] MEDS ORDERED: BUSP5TA PO (15:29)
[2022-08-02] MEDS ORDERED: CLEO300C2 PO (17:35)
== END 2022-08-01 22:06 | disposition left against medical advice (07) ==
LOC: M ED 16:40
DX: Z53.21 Procedure and treatment not carried out due to patient leaving prior to being seen by health care provider (principal)

== ENCOUNTER 2022-08-02 15:15 | Emergency (ER) | payer OTHER ==
[~2022-08-02] VITALS: Ht 154.9 cm; Wt 102.9 kg
[2022-08-02] MEDS ORDERED: PREN1TAB11 PO (15:29)
[2022-08-02] MEDS ORDERED: BUSP5TA PO (15:29)
[2022-08-02] MEDS ORDERED: CLEO300C2 PO (17:35)
[2022-08-02 17:43] VITALS: BP 135/87
== END 2022-08-02 17:45 | disposition home or self-care (01) ==
LOC: M ED 15:15
DX: O99.512 Diseases of the respiratory system complicating pregnancy, second trimester (principal); J01.00 Acute maxillary sinusitis, unspecified; Z88.0 Allergy status to penicillin; Z88.1 Allergy status to other antibiotic agents; Z3A.19 19 weeks gestation of pregnancy

== ENCOUNTER → 2022-08-22 | Outpatient (CLI) | payer OTHER ==
[~2022-08-22] MED LIST changes: +CLEO300C2 PO; +PREN1TAB11 PO
== END ==
LOC: M RAD 10:08
PROVIDERS: ATTEND Obstetrics & Gynecology
DX: Z34.82 Encounter for supervision of other normal pregnancy, second trimester (principal)

== ENCOUNTER → 2022-10-03 | Outpatient (CLI) | payer OTHER ==
[2022-10-03 11:00] LABS: HEMATOCRIT 33.3 % (36.0-47.0); MEAN CORPUSCULAR HEMOGLOBIN 29.3 pg (27.0-33.0); MEAN CORPUSCULAR VOLUME 88.8 fl (80.0-96.0); PLATELET COUNT, AUTOMATED 221 10^3/uL (150-450); RED BLOOD COUNT 3.75 10^6/uL (4.00-5.40); WHITE BLOOD COUNT 9.9 10^3/uL (4.0-10.0)
== END ==
LOC: M PLALAB 07:52
PROVIDERS: ATTEND Obstetrics & Gynecology
DX: O34.211 Maternal care for low transverse scar from previous cesarean delivery (principal); Z3A.00 Weeks of gestation of pregnancy not specified

== ENCOUNTER → 2022-10-23 | Outpatient (CLI) | payer OTHER | LOC: M LAB 08:11 | PROVIDERS: ATTEND Obstetrics & Gynecology | DX: R73.09 Other abnormal glucose (principal) ==

== ENCOUNTER → 2022-10-25 | Outpatient (CLI) | payer OTHER | LOC: M WHC 13:17 | PROVIDERS: ATTEND Obstetrics & Gynecology | DX: O34.211 Maternal care for low transverse scar from previous cesarean delivery (principal); Z3A.31 31 weeks gestation of pregnancy ==

== ENCOUNTER → 2022-10-29 | Outpatient (CLI) | payer OTHER ==
[2022-10-29 15:14] LABS: APPEARANCE, URINE HAZY (CLEAR); BACTERIA, URINE AUTO 1+ (NEGATIVE); BILIRUBIN, URINE AUTO NEGATIVE (NEGATIVE); BLOOD, URINE BLOOD NEGATIVE (NEGATIVE); COLOR, URINE YELLOW (YELLOW); GLUCOSE, URINE (UA) AUTO 1+ mg/dL (NEGATIVE); KETONE, URINE AUTO TRACE mg/dL (NEGATIVE); LEUKOCYTE ESTERASE, URINE AUTO 3+ (NEGATIVE); MUCUS, URINE SMALL (NEGATIVE); NITRITE, URINE AUTO NEGATIVE (NEGATIVE); PROTEIN, URINE AUTO NEGATIVE (NEGATIVE); RBC, URINE AUTO 2 /HPF (0-3); SQUAMOUS EPITHELIAL CELL UR AU 13 /HPF (0-6); UROBILINOGEN, URINE AUTO 0.2 mg/dL (0.0-2.0); WBC, URINE AUTO 20 /HPF (0-3)
== END ==
LOC: M LAB 14:40
PROVIDERS: ATTEND Obstetrics & Gynecology
DX: R30.0 Dysuria (principal)

== ENCOUNTER 2022-11-02 09:07 | Inpatient (IN) | payer OTHER ==
[~2022-11-02] VITALS: Ht 154.9 cm; Wt 104.3 kg
[2022-11-02] MEDS ORDERED: HOME MED LIST COMPLETE! XX SCH (09:30)
[2022-11-02 09:33] VITALS: BP 127/58
[2022-11-02] MEDS ORDERED: AZITHROMYCIN 250MG TABLET PO ONE (12:10)
[2022-11-02] MEDS: ceFAZolin SOD 1 GM in D5W MINI-BAG PLUS 50 ML IV SCH ×2 (13:59→20:06)
[2022-11-02] MEDS: BETAMETHASONE SOLUSPAN 6MG/ML 5ML VIAL IM SCH (13:59)
[2022-11-02 14:14] VITALS: BP 112/66
[2022-11-02 14:35] LABS: HEMATOCRIT 33.2 % (36.0-47.0); HEMOGLOBIN 11.3 g/dl (12.0-15.5); MEAN CORPUSCULAR HEMOGLOBIN 29.4 pg (27.0-33.0); MEAN CORPUSCULAR VOLUME 86.2 fl (80.0-96.0); PLATELET COUNT, AUTOMATED 186 10^3/uL (150-450); RED BLOOD COUNT 3.85 10^6/uL (4.00-5.40); WHITE BLOOD COUNT 11.9 10^3/uL (4.0-10.0)
[2022-11-02 17:27] VITALS: BP 112/55
[2022-11-02] MEDS: busPIRone 5 MG TAB PO SCH (20:06)
[2022-11-03] MEDS: ceFAZolin SOD 1 GM in D5W MINI-BAG PLUS 50 ML IV SCH ×3 (04:00→20:04)
[2022-11-03 04:12] VITALS: BP 101/56
[2022-11-03] MEDS: busPIRone 5 MG TAB PO SCH ×2 (08:29→22:42)
[2022-11-03 08:36] VITALS: BP 122/57
[2022-11-03 09:55] VITALS: BP 133/60
[2022-11-03] MEDS: BETAMETHASONE SOLUSPAN 6MG/ML 5ML VIAL IM SCH (14:10)
[2022-11-03 18:00] VITALS: BP 112/56
[2022-11-03] MEDS ORDERED: ACETAMINOPHEN 500 MG TAB PO PRN (21:15)
[2022-11-04] MEDS: ceFAZolin SOD 1 GM in D5W MINI-BAG PLUS 50 ML IV SCH (04:03)
[2022-11-04] MEDS ORDERED: KETOROLAC 30 MG/ML 1ML VIAL IV ONE (04:35)
[2022-11-04 06:03] VITALS: BP 95/55
[2022-11-04] MEDS: PRENATAL VITAMINS CHEWABLE TABLET PO SCH (07:42)
[2022-11-04] MEDS: busPIRone 5 MG TAB PO SCH ×2 (09:09→21:13)
[2022-11-04] MEDS ORDERED: SLF 3 ML SYR IV PRN (10:45)
[2022-11-04] MEDS: CEPHALEXIN 500 MG CAP PO SCH ×2 (12:06→18:23)
[2022-11-04 12:24] VITALS: BP 118/61
[2022-11-04] MEDS: SLF 3 ML SYR IV SCH ×2 (14:00→21:15)
[2022-11-04 18:01] VITALS: BP 138/61
[2022-11-05] MEDS: CEPHALEXIN 500 MG CAP PO SCH ×4 (00:21→18:05)
[2022-11-05] MEDS: SLF 3 ML SYR IV SCH ×3 (05:23→20:31)
[2022-11-05] MEDS: PRENATAL VITAMINS CHEWABLE TABLET PO SCH (08:18)
[2022-11-05] MEDS: busPIRone 5 MG TAB PO SCH ×2 (09:01→20:30)
[2022-11-05 18:00] VITALS: BP 119/58
[2022-11-05 22:00] VITALS: BP 109/51
[2022-11-06] MEDS: CEPHALEXIN 500 MG CAP PO SCH ×4 (00:04→18:26)
[2022-11-06 06:00] VITALS: BP 104/59
[2022-11-06] MEDS: SLF 3 ML SYR IV SCH ×3 (06:09→22:00)
[2022-11-06] MEDS: busPIRone 5 MG TAB PO SCH ×2 (08:07→20:30)
[2022-11-06] MEDS: PRENATAL VITAMINS CHEWABLE TABLET PO SCH (08:08)
[2022-11-06 09:55] VITALS: BP 120/68
[2022-11-06 13:29] LABS: HEMATOCRIT 33.6 % (36.0-47.0); HEMOGLOBIN 11.3 g/dl (12.0-15.5); MEAN CORPUSCULAR HEMOGLOBIN 29.4 pg (27.0-33.0); MEAN CORPUSCULAR HGB CONC 33.6 g/dl (32.0-36.5); MEAN CORPUSCULAR VOLUME 87.5 fl (80.0-96.0); PLATELET COUNT, AUTOMATED 210 10^3/uL (150-450); RED BLOOD COUNT 3.84 10^6/uL (4.00-5.40); WHITE BLOOD COUNT 13.4 10^3/uL (4.0-10.0)
[2022-11-06 14:00] VITALS: BP 116/65
[2022-11-06 18:00] VITALS: BP 123/69
[2022-11-06 22:00] VITALS: BP 110/58
[2022-11-07] MEDS: CEPHALEXIN 500 MG CAP PO SCH ×4 (00:30→18:16)
[2022-11-07 02:00] VITALS: BP 104/56
[2022-11-07 06:00] VITALS: BP 108/59
[2022-11-07] MEDS: SLF 3 ML SYR IV SCH ×3 (07:55→21:00)
[2022-11-07] MEDS: busPIRone 5 MG TAB PO SCH ×2 (08:00→21:00)
[2022-11-07] MEDS: PRENATAL VITAMINS CHEWABLE TABLET PO SCH (08:00)
[2022-11-07 10:00] VITALS: BP 121/65
[2022-11-07 14:00] VITALS: BP 122/80
[2022-11-07 22:00] VITALS: BP 118/62
[2022-11-08] MEDS: CEPHALEXIN 500 MG CAP PO SCH ×5 (00:17→23:52)
[2022-11-08 02:00] VITALS: BP 110/58
[2022-11-08 06:00] VITALS: BP 115/54
[2022-11-08] MEDS: SLF 3 ML SYR IV SCH (06:01)
[2022-11-08] MEDS: PRENATAL VITAMINS CHEWABLE TABLET PO SCH (09:40)
[2022-11-08] MEDS: busPIRone 5 MG TAB PO SCH ×2 (09:40→21:02)
[2022-11-08 10:00] VITALS: BP 122/58
[2022-11-08 14:00] VITALS: BP 119/56
[2022-11-08 18:00] VITALS: BP 112/62
[2022-11-08 22:00] VITALS: BP 107/55
[2022-11-09] VITALS (7 sets, daily range): BP systolic 105–138; BP diastolic 51–75
[2022-11-09] MEDS: CEPHALEXIN 500 MG CAP PO SCH ×4 (06:10→23:46)
[2022-11-09] MEDS: busPIRone 5 MG TAB PO SCH ×2 (09:24→21:04)
[2022-11-09] MEDS: PRENATAL VITAMINS CHEWABLE TABLET PO SCH (09:24)
[2022-11-09] MEDS: HEPARIN SOD (PORCINE) 5000UNITS/ML 1ML VIAL/SYRINGE SQ SCH (21:00)
[2022-11-10 06:45] VITALS: BP 117/74
[2022-11-10 08:00] VITALS: BP 115/73
[2022-11-10] MEDS: PRENATAL VITAMINS CHEWABLE TABLET PO SCH (09:07)
[2022-11-10] MEDS: HEPARIN SOD (PORCINE) 5000UNITS/ML 1ML VIAL/SYRINGE SQ SCH ×2 (09:07→20:56)
[2022-11-10] MEDS: busPIRone 5 MG TAB PO SCH ×2 (09:07→20:56)
[2022-11-10 12:00] VITALS: BP 121/66
[2022-11-10 18:00] VITALS: BP 116/58
[2022-11-10] MEDS: LR 1,000 ML IV SCH (22:39)
[2022-11-10 22:57] LABS: HEMATOCRIT 32.5 % (36.0-47.0); HEMOGLOBIN 11.2 g/dl (12.0-15.5); MEAN CORPUSCULAR HEMOGLOBIN 29.4 pg (27.0-33.0); MEAN CORPUSCULAR HGB CONC 34.5 g/dl (32.0-36.5); MEAN CORPUSCULAR VOLUME 85.3 fl (80.0-96.0); PLATELET COUNT, AUTOMATED 230 10^3/uL (150-450); RED BLOOD COUNT 3.81 10^6/uL (4.00-5.40); WHITE BLOOD COUNT 12.5 10^3/uL (4.0-10.0)
[2022-11-11] MEDS: LR 1,000 ML IV SCH ×2 (05:55→13:55)
[2022-11-11 07:09] VITALS: BP 118/63
[2022-11-11] MEDS ORDERED: HEPARIN SOD (PORCINE) 5000UNITS/ML 1ML VIAL/SYRINGE SQ SCH (09:00)
[2022-11-11] MEDS: PRENATAL VITAMINS CHEWABLE TABLET PO SCH (09:15)
[2022-11-11] MEDS: busPIRone 5 MG TAB PO SCH ×2 (09:15→21:24)
[2022-11-11 10:46] VITALS: BP 137/68
[2022-11-11 14:58] VITALS: BP 125/62
[2022-11-11 18:53] VITALS: BP 131/67
[2022-11-11 23:19] VITALS: BP 132/58
[2022-11-12] VITALS (8 sets, daily range): BP systolic 108–143; BP diastolic 59–75
[2022-11-12 06:54] LABS: HEMATOCRIT 31.1 % (36.0-47.0); HEMOGLOBIN 10.6 g/dl (12.0-15.5); MEAN CORPUSCULAR HEMOGLOBIN 29.5 pg (27.0-33.0); MEAN CORPUSCULAR HGB CONC 34.1 g/dl (32.0-36.5); MEAN CORPUSCULAR VOLUME 86.6 fl (80.0-96.0); PLATELET COUNT, AUTOMATED 191 10^3/uL (150-450); RED BLOOD COUNT 3.59 10^6/uL (4.00-5.40); WHITE BLOOD COUNT 10.3 10^3/uL (4.0-10.0)
[2022-11-12] MEDS ORDERED: MORPHINE PRES-FREE INJ 10 MG/10 ML VIAL As Ordered ONE (08:30)
[2022-11-12] MEDS ORDERED: fentaNYL 100 MCG/2 ML INJECTION As Ordered ONE (08:30)
[2022-11-12] MEDS ORDERED: KETOROLAC 60MG 2ML VIAL As Ordered ONE (08:30)
[2022-11-12] MEDS ORDERED: ONDANSETRON 4MG 2ML VIAL As Ordered ONE (08:30)
[2022-11-12] MEDS ORDERED: OXYTOCIN INJ 10UNITS/ML 1ML VIAL As Ordered ONE ×2 (08:30→11:03)
[2022-11-12] MEDS ORDERED: ceFAZolin SOD 3 GM IV Place Holder IV ONE (08:40)
[2022-11-12] MEDS ORDERED: AZITHROMYCIN INJ 500 MG, VIAL MATE ADAPTER 1 EACH in NS 250 ML IV ONE (08:40)
[2022-11-12] MEDS ORDERED: CARBOPROST TROMETHAMINE 250 MCG/ML AMP IM PRN (08:40)
[2022-11-12] MEDS ORDERED: METHYLERGONOVINE MALEATE 0.2MG/ML 1ML VIAL IM PRN (08:40)
[2022-11-12] MEDS ORDERED: OXYTOCIN DRIP 30 UNITS in IV 1 EA IV PRN (08:40)
[2022-11-12] MEDS ORDERED: BICITRA 30ML SOLN UDC PO ONE (08:40)
[2022-11-12] MEDS ORDERED: TRANEXAMIC ACID INJection 1,000 MG in NS 100 ML IV PRN (08:40)
[2022-11-12] MEDS ORDERED: ceFAZolin SOD 2 GM in IV 1 EA IV ONE (08:45)
[2022-11-12] MEDS ORDERED: ceFAZolin SOD 1 GM in D5W MINI-BAG PLUS 50 ML IV ONE (08:45)
[2022-11-12] MEDS: PRENATAL VITAMINS CHEWABLE TABLET PO SCH (09:00)
[2022-11-12] MEDS: busPIRone 5 MG TAB PO SCH ×2 (09:10→20:00)
[2022-11-12 10:54] LABS: CORD GAS ABE A -2.8; CORD GAS HCO3 A 24.7 MMOL/L; CORD GAS O2 SAT A 41.5 %; CORD GAS PH A 7.278 UNITS; CORD GAS PO2 A 18.9 mmHg; CORD GAS SBC A 20.8 MMOL/L; CORD GAS TCO2 A 26.3 MMOL/L
[2022-11-12 10:56] LABS: CORD GAS ABE V -2.8; CORD GAS HCO3 V 22.5 MMOL/L; CORD GAS O2 SAT V 86.2 %; CORD GAS PCO2 V 41.3 mmHg; CORD GAS PH V 7.355 UNITS; CORD GAS PO2 V 41.2 mmHg; CORD GAS SBC V 21.9 MMOL/L; CORD GAS TCO2 V 23.8 MMOL/L
[2022-11-12] MEDS ORDERED: MIDAZOLAM INJ 2MG/2ML VIAL As Ordered ONE (11:04)
[2022-11-12] MEDS ORDERED: OXYTOCIN DRIP 30 UNITS in IV 1 EA IV SCH (11:45)
[2022-11-12] MEDS ORDERED: ANUSOL HC CREAM 30GM TOP PRN (11:45)
[2022-11-12] MEDS ORDERED: RHOGAM 300MCG (1500IU) INJ IM SCH (11:45)
[2022-11-12] MEDS ORDERED: SIMETHICONE 80MG CHEW TAB PO PRN (11:45)
[2022-11-12] MEDS ORDERED: ACETAMINOPHEN 500 MG TAB PO PRN (11:45)
[2022-11-12] MEDS: LR 1,000 ML IV SCH ×2 (11:45→15:51)
[2022-11-12] MEDS ORDERED: PERCOCET 5MG/325MG TAB PO PRN ×2 (11:45)
[2022-11-12] MEDS ORDERED: OXYTOCIN 30UNITS IN 0.9% NaCl 500ML IV BAG As Ordered ONE (11:54)
[2022-11-12 12:35] LABS: HEMATOCRIT 34.3 % (36.0-47.0); HEMOGLOBIN 11.6 g/dl (12.0-15.5); MEAN CORPUSCULAR HEMOGLOBIN 29.7 pg (27.0-33.0); MEAN CORPUSCULAR HGB CONC 33.8 g/dl (32.0-36.5); MEAN CORPUSCULAR VOLUME 87.7 fl (80.0-96.0); PLATELET COUNT, AUTOMATED 202 10^3/uL (150-450); RED BLOOD COUNT 3.91 10^6/uL (4.00-5.40); WHITE BLOOD COUNT 14.7 10^3/uL (4.0-10.0)
[2022-11-12 12:49] LABS: CREATININE FOR GFR 0.44 MG/DL (0.55-1.30); GLOMERULAR FILTRATION RATE > 60.0 (>60)
[2022-11-12] MEDS ORDERED: **NOTE PATIENT COMMENT** MISC XX SCH (13:45)
[2022-11-12] MEDS ORDERED: diphenhydrAMINE 50MG/ML VIAL IV PRN (13:45)
[2022-11-12] MEDS ORDERED: ONDANSETRON 4MG 2ML VIAL IV PRN (13:45)
[2022-11-12] MEDS: SLF 3 ML SYR IV SCH ×2 (13:45→21:45)
[2022-11-12] MEDS ORDERED: METOCLOPRAMIDE INJ 10MG/2ML VIAL IV PRN (13:45)
[2022-11-12] MEDS ORDERED: NALOXONE INJ 0.4MG/1ML VIAL IV PRN ×2 (13:45)
[2022-11-12] MEDS: KETOROLAC 30 MG/ML 1ML VIAL IV SCH ×2 (16:54→22:14)
[2022-11-12] MEDS: ENOXAPARIN 40MG/0.4ML SYRINGE (J1650 PER 10MG) SC SCH (19:59)
[2022-11-12] MEDS: DOCUSATE SODIUM 100MG CAPSULE PO SCH (20:00)
[2022-11-13 02:00] VITALS: BP 114/58
[2022-11-13] MEDS: LR 1,000 ML IV SCH ×2 (03:58→11:45)
[2022-11-13] MEDS: KETOROLAC 30 MG/ML 1ML VIAL IV SCH (03:58)
[2022-11-13 06:00] VITALS: BP 112/58
[2022-11-13] MEDS: SLF 3 ML SYR IV SCH (06:07)
[2022-11-13] MEDS ORDERED: PRENATAL VITAMINS CHEWABLE TABLET PO SCH (09:00)
[2022-11-13] MEDS ORDERED: IBUP80TA PO (09:24)
[2022-11-13] MEDS ORDERED: PERCOCET PO (09:24)
[2022-11-13] MEDS ORDERED: COLA100C5 PO (09:24)
[2022-11-13] MEDS: PRENATAL VITAMINS CHEWABLE TABLET PO SCH (09:32)
[2022-11-13] MEDS: DOCUSATE SODIUM 100MG CAPSULE PO SCH ×2 (09:33→21:01)
[2022-11-13] MEDS: busPIRone 5 MG TAB PO SCH ×2 (09:33→21:01)
[2022-11-13] MEDS: FERROUS SULFATE 325MG TAB PO SCH (09:33)
[2022-11-13 10:00] VITALS: BP 115/57
[2022-11-13] MEDS: IBUPROFEN 800 MG TAB PO SCH ×2 (13:10→19:50)
[2022-11-13 14:00] VITALS: BP 106/54
[2022-11-13 18:00] VITALS: BP 105/56
[2022-11-13] MEDS: ENOXAPARIN 40MG/0.4ML SYRINGE (J1650 PER 10MG) SC SCH (19:50)
[2022-11-13 22:00] VITALS: BP 100/51
[2022-11-14 02:00] VITALS: BP 101/51
[2022-11-14] MEDS: IBUPROFEN 800 MG TAB PO SCH ×2 (04:04→12:05)
[2022-11-14 06:00] VITALS: BP 110/62
[2022-11-14] MEDS: DOCUSATE SODIUM 100MG CAPSULE PO SCH (08:49)
[2022-11-14] MEDS: busPIRone 5 MG TAB PO SCH (08:49)
[2022-11-14] MEDS: PRENATAL VITAMINS CHEWABLE TABLET PO SCH (08:49)
[2022-11-14] MEDS: FERROUS SULFATE 325MG TAB PO SCH (08:49)
[2022-11-14] MEDS ORDERED: MEASLES,MUMPS,RUBELLA VACCINE INJ (MMR-II) SC.IMMUN ONE (09:00)
[2022-11-14 10:01] VITALS: BP 103/55
== END 2022-11-14 13:30 | disposition home or self-care (01) | DRG 540 ==
LOC: M LDO 09:07 → M LDI 12:05 → M OBS 11-03 09:50 → M LDI 11-09 21:47 → M OBS 11-10 12:30 → M LDI 11-10 22:01 → M OBS 11-12 13:35
PROVIDERS: ADMIT Specialist; ATTEND Specialist
PROC: 0UB50ZZ Excision of Right Fallopian Tube, Open Approach (ICD-10-PCS; 2022-11-12)
PROC: 10D00Z1 Extraction of Products of Conception, Low, Open Approach (ICD-10-PCS; principal; 2022-11-12 09:30)
DX: O42.112 Preterm premature rupture of membranes, onset of labor more than 24 hours following rupture, second trimester (principal); O32.2XX0 Maternal care for transverse and oblique lie, not applicable or unspecified; O34.211 Maternal care for low transverse scar from previous cesarean delivery; Z37.0 Single live birth; Z3A.32 32 weeks gestation of pregnancy; Z88.0 Allergy status to penicillin; Z88.8 Allergy status to other drugs, medicaments and biological substances; O76 Abnormality in fetal heart rate and rhythm complicating labor and delivery; O09.523 Supervision of elderly multigravida, third trimester

== ENCOUNTER → 2023-02-05 | Outpatient (REF) | payer OTHER ==
[~2023-02-05] MED LIST changes: +COLA100C5 PO; +IBUP80TA PO; +PERCOCET PO
[2023-02-05 14:31] LABS: BASO # 0.1 10^3/uL (0.0-0.2); BASO % 0.9 % (0.0-1.0); EOS # 0.7 10^3/uL (0.0-0.5); EOS % 8.2 % (0.0-3.0); HEMATOCRIT 40.7 % (36.0-47.0); HEMOGLOBIN 13.6 g/dl (12.0-15.5); LYMPH % 34.9 % (24.0-44.0); MEAN CORPUSCULAR HEMOGLOBIN 28.6 pg (27.0-33.0); MEAN CORPUSCULAR HGB CONC 33.4 g/dl (32.0-36.5); MEAN CORPUSCULAR VOLUME 85.7 fl (80.0-96.0); MONO # 0.8 10^3/uL (0.0-0.8); MONO % 8.9 % (2.0-8.0); NEUTROPHILS % 46.7 % (36.0-66.0); PLATELET COUNT, AUTOMATED 301 10^3/uL (150-450); RED BLOOD COUNT 4.75 10^6/uL (4.00-5.40); WHITE BLOOD COUNT 8.5 10^3/uL (4.0-10.0)
[2023-02-05 14:41] LABS: HEMOGLOBIN A1c 5.1 % (4.0-6.0)
[2023-02-05 14:52] LABS: ALBUMIN 3.8 G/DL (3.2-5.2); ALKALINE PHOSPHATASE 80 U/L (46-116); ALT/SGPT 25 U/L (7.0-40); AST/SGOT 13 U/L (<34); BILIRUBIN,TOTAL 0.5 MG/DL (0.3-1.2); BLOOD UREA NITROGEN 9 MG/DL (9-23); CALCIUM LEVEL 9.6 MG/DL (8.5-10.1); CARBON DIOXIDE LEVEL 24 MMOL/L (20-31); CHLORIDE LEVEL 106 MMOL/L (98-107); CHOLESTEROL LEVEL 170 MG/DL (<200); CHOLESTEROL RISK RATIO 3.11 (<5); CREATININE FOR GFR 0.68 MG/DL (0.55-1.30); GLOMERULAR FILTRATION RATE > 60.0 (>60); GLUCOSE, FASTING 88 MG/DL (60-100); HDL CHOLESTEROL 54.6 MG/DL (>40); LDL CHOLESTEROL 85.8 MG/DL (<100); NON-HDL-C 115.4 MG/DL; POTASSIUM SERUM 4.3 MMOL/L (3.5-5.1); SODIUM LEVEL 138 MMOL/L (136-145); TOTAL PROTEIN 6.7 G/DL (5.7-8.2); TRIGLYCERIDES LEVEL 148 MG/DL (<150)
[2023-02-05 14:57] LABS: THYROID STIMULATING HORMONE 2.757 uIU/ML (0.55-4.78)
== END ==
LOC: M LAB REF 12:27
PROVIDERS: ATTEND Nurse Practitioner Family
DX: Z13.228 Encounter for screening for other metabolic disorders (principal)

== ENCOUNTER → 2023-03-21 | Outpatient (REF) | payer OTHER | LOC: M SFHCWAGY 17:25 | PROVIDERS: ATTEND Obstetrics & Gynecology | DX: Z12.4 Encounter for screening for malignant neoplasm of cervix (principal) ==

== ENCOUNTER 2025-05-26 19:31 | Emergency (ER) | payer OTHER, SELFPAY ==
[~2025-05-26] VITALS: Ht 154.9 cm; Wt 97.7 kg
[~2025-05-26 19:31] MED LIST changes: +ONDA-282 PO; -ONDA4TAB6 PO; +PROZ10CA11 PO; -PROZ10CA7 PO
[2025-05-26 21:47] VITALS: BP 132/72; TEMP 97.6; O2SAT 98
== END 2025-05-26 22:05 | disposition home or self-care (01) ==
LOC: M ED 19:31
DX: M25.562 Pain in left knee (principal); Z88.0 Allergy status to penicillin; Z88.1 Allergy status to other antibiotic agents; Z79.1 Long term (current) use of non-steroidal anti-inflammatories (NSAID); Z79.899 Other long term (current) drug therapy